=== PATIENT | female | born 1955 | race Two or more races ===

== ENCOUNTER 2016-03-17 19:08 | Emergency (ER) | payer OTHER ==
[~2016-03-17] VITALS: Ht 157.5 cm; Wt 81.6 kg
[2016-03-17 19:40] VITALS: BP 132/80
[2016-03-17] MEDS ORDERED: IBUPROFEN 600 MG TAB PO ONE (21:15)
== END 2016-03-17 21:18 | disposition home or self-care (01) ==
LOC: ER 19:18
DX: S00.93XA Contusion of unspecified part of head, initial encounter (principal); M25.552 Pain in left hip; M19.90 Unspecified osteoarthritis, unspecified site; V43.62XA Car passenger injured in collision with other type car in traffic accident, initial encounter; Y93.89 Activity, other specified; Y99.8 Other external cause status; Y92.89 Other specified places as the place of occurrence of the external cause
CPT/HCPCS: 70450; 93005

== ENCOUNTER 2017-02-08 05:08 | Emergency (ER) | payer OTHER ==
[~2017-02-08] VITALS: Ht 157.5 cm; Wt 83.5 kg
[2017-02-08 07:55] VITALS: BP 127/77
[2017-02-08] MEDS ORDERED: SODIUM CHLORIDE 0.9% 1,000 ML IV ONE (08:18)
[2017-02-08] MEDS ORDERED: METOCLOPRAMIDE HCL 5MG/ml INJ 2ml VIAL IV ONE (08:30)
[2017-02-08] MEDS ORDERED: KETOROLAC TROMETH 30 MG/ML 1ML VIAL IV ONE (08:30)
[2017-02-08 08:56] LABS: Basophils # (auto) 0 uL; Basophils % (auto) 0.5 % (0.0-2.0); Eosinophils # (auto) 0 uL; Hematocrit 41.8 % (36.0-46.0); Hemoglobin 14.1 g/dL (12.2-16.2); Lymphocytes # (auto) 0.8 uL; Lymphocytes % (auto) 12.4 % (10.0-50.0); Mean Corpuscular Hemoglobin 29.6 pg (28.0-32.0); Mean Corpuscular Hgb Conc. 33.9 g/dL (32.0-36.0); Mean Corpuscular Volume 87.6 fL (80.0-100.0); Monocytes # (auto) 0.9 uL; Monocytes % (auto) 13.3 % (0.0-12.0); Neutrophils % (auto) 73.8 % (37.0-80.0); Nucleated Red Blood Cells % 0.1 %; Platelet Count (auto) 153 10^3/uL (140-450); Red Blood Cells 4.77 10^6/uL (4.0-5.20); Red Cell Distribution Width 13.2 % (11.8-14.3); White Blood Cell 6.8 10^3/uL (4.4-10.8)
[2017-02-08 10:12] LABS: Calcium 8.8 mg/dL (8.5-10.1); Magnesium 2.5 mg/dL (1.6-2.6); Potassium 4.2 mmol/L (3.5-5.1)
[2017-02-08 11:09] LABS: Urine Bacteria FEW /hpf (None Seen); Urine Blood Negative /uL (Negative); Urine Specific Gravity 1.007 (1.001-1.035); Urine WBC 5 /hpf (0 - 5)
[2017-02-08] MEDS ORDERED: OSELTAMIVIR 75 MG CAP PO ONE (12:15)
[2017-02-08] MEDS ORDERED: OSELTAMIVIR 30 MG CAP PO ONE (12:22)
== END 2017-02-08 12:34 | disposition home or self-care (01) ==
LOC: ER 05:12
DX: M35.3 Polymyalgia rheumatica (principal); J09.X2 Influenza due to identified novel influenza A virus with other respiratory manifestations
CPT/HCPCS: 36415; 80048; 81001; 81002; 83735; 85025; 87070; 87400; 87880; 93005; 94761; 96361; 96374; 96375; 99285; J1885; J2765; J7030; G9035

== ENCOUNTER 2018-05-31 15:03 | Emergency (ER) | payer OTHER ==
[~2018-05-31] VITALS: Ht 157.5 cm; Wt 84.8 kg
[2018-05-31 15:15] VITALS: BP 137/80
== END 2018-05-31 18:41 | disposition left against medical advice (07) ==
LOC: ER 15:03
DX: R51 Headache (principal); R07.9 Chest pain, unspecified; Z53.21 Procedure and treatment not carried out due to patient leaving prior to being seen by health care provider
CPT/HCPCS: 70450